=== PATIENT | female | born 1995 | race African-American/Black ===

== ENCOUNTER 2019-06-06 11:04 | Outpatient (CLI) | payer MEDICAID ==
--- NOTE | 2019-06-06 12:07 | Non Stress Test Report ---
Non Stress Test Datetime Report Generated by CPN: 06/06/2019 12:07 DEMOGRAPHIC EGA NST: 39.5 INDICATION Indication for Study (NST) Other: suspected SROM MONITORING Monitor Explained: Monitor Explained; Test Explained; Patient Verbalized Understanding Time on Monitor: 06/06/2019 11:46 Time off Monitor: 06/06/2019 12:06 NST Duration: 20 NST INTERVENTIONS NST Interventions: None Physician Notified NST: Dr. Brian BABY A: [id number] BABY A Movement : Present Contraction Frequency : x1 FHR Baseline : 155 Accelerations : 15X15 Decelerations : None Variability : Moderate 6-25bpm NST Review: Meets Criteria for Reactive NST NST Review and Verified By : TMartin,RN NST Results: Reactive NST REPORT Report Trigger: Send Report
[2019-06-06] MEDS ORDERED: RINGERS SOLUTION,LACTATED 1,000 ML IV PRN (12:35)
== END 2019-06-06 14:08 | disposition home or self-care (01) ==
LOC: LC 11:04
PROVIDERS: ATTEND Obstetrics & Gynecology
PROC: 4A1HXCZ Monitoring of Products of Conception, Cardiac Rate, External Approach (ICD-10-PCS; principal; 2019-06-06)
DX: Z36.89 Encounter for other specified antenatal screening (principal); Z3A.39 39 weeks gestation of pregnancy
CPT/HCPCS: 59025; 84112

== ENCOUNTER 2019-06-12 09:20 | Inpatient (IN) | payer MEDICAID ==
[2019-06-12] MEDS ORDERED: RINGERS SOLUTION,LACTATED 1,000 ML IV ONE (10:52)
[2019-06-12] MEDS: RINGERS SOLUTION,LACTATED 1,000 ML IV PRN ×3 (11:02→17:55)
--- NOTE | 2019-06-12 11:30 | Admission Physical ---
Datetime Report Generated by CPN: 06/12/2019 11:30 CURRENT ADMISSION Chief Complaint: Other Chief Complaint Other: NR NST Indication for Induction- Other: Decel on NST Admit Impression : Term, Intrauterine ; No Active Labor Admit Plan: Initiate Labor Induction Protocol ALLERGIES Medication Allergies: No Medication Allergies: No Known Allergies (06/12/2019) Latex: No Latex Allergies OBSTETRICAL HISTORY EDC: 06/08/2019 00:00 : 1 Para: 0 Term: 0 : 0 SAB: 0 IAB: 0 Ectopic: 0 Livin Cesareans: 0 VBACs: 0 Multiple Births: 0 Gestational Diabetes: No Rh Sensitization: No Incompetent Cervix: No ANDREW: No Infertility: No ART Treatment: No Uterine Anomaly: No IUGR: No Hx Previous C/S: No Macrosomia: No Hx Loss/Stillborn: No PIH: No Hx : No Placenta Previa/Abruption: No Depression/PP Depression: No PTL/PROM: No Post Hemorrhage: No Current Procedures: Ultrasound Obstetrical History Comments: G1- current SEE RECORDS Alcohol: No Marijuana : No Cocaine: No Other Illicit Drugs: No Cigarettes: Never Smoker. 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 Heart Disease: No Hosp/Surgery: No Autoimmune Disorder: No Anesthetic Complications: No Kidney Disease: No Abnormal Pap Smear: No Neuro/Epilepsy: No Psychiatric Disorders: No Other Medical Diseases: No Hepatitis/Liver Disease: No Significant Family History: No Varicosities/Phlebitis: No Trauma/Violence : No Thyroid Dysfunction: No Medical History Comments: thombocytopenia as a child INFECTIOUS HISTORY Gonorrhea: No Genital Herpes: No Chlamydia: No Tuberculosis: No Syphilis: No Hepatitis: No HIV/AIDS Exposure: No Rash or Viral Illness: No HPV: No PHYSICAL EXAM General: Normal HEENT: Normal Neurologic: Normal Thyroid: Normal Heart: Normal Lungs: Normal Breast: Normal Back: Normal Abdomen: Normal Genitourinary Exam: Normal Extremities: Normal DTRs: Normal Pelvic Type: Adequate Vital Signs: Reviewed VAGINAL EXAM Dilatation: 1 Effacement: 50 Station: -3 Contraction Comments: occassional MEMBRANES Membranes: Intact FETUS A EGA: 40.4 Monitoring: External US FHR- Baseline: 145 Variability: Moderate 6-25bpm Accelerations: 10X10 Decelerations: Variable FHR Category: Category II Admit Comment: at 40 wks 4 days, sent from the office for a NR-NST. Prolonged variable decel while having Rpt NST here. VE per Dr Brian, External Os 3 but Internal Os is only 1 cm./ 50/ -3, ballotable. GBS+, will need abx when in labor. Will plan to start cervical ripening and use borges bulb. Attending MD is Dr Brian PLANS FOR LABOR AND DELIVERY Labor and Delivery: None Pain Management: Natural; Medications; Epidural Feeding Preference: Breast Benefit of Breast Feed Discussed: Yes Circumcision: Yes INFORMED CONSENT Assignment: Whitney Galarza MD Signature: with User ID: Rosa : with User ID: Rosa
[2019-06-12] MEDS ORDERED: PENICILLIN G-K 5 MILLION UNIT VIAL ONE ×3 (11:32→19:17)
[2019-06-12] MEDS ORDERED: OXYTOCIN/NORMAL SALINE 20 UNIT/1,000 ML RTUINJ ONE ×3 (11:33→23:27)
[2019-06-12] MEDS ORDERED: PENICILLIN G POTASSIUM 5,000,000 UNIT in DEXTROSE 5%-WATER 100 ML IV ONE (11:35)
[2019-06-12 11:51] LABS: ABSOLUTE LYMPHOCYTES (AUTO) 1.4 10^3/uL (0.5-4.7); ABSOLUTE MONOCYTES (AUTO) 0.7 10^3/uL (0.1-1.4); BASOPHILS % (AUTO) 0.5 % (0-2); EOSINOPHILS % (AUTO) 0.7 % (0-6); HEMOGLOBIN 11.4 g/dL (12.0-15.5); LYMPHOCYTES % (AUTO) 19.6 % (13-45); MEAN CORPUSCULAR HEMOGLOBIN 29.4 pg (27.0-33.4); MEAN CORPUSCULAR HGB CONC 34.6 g/dL (32.0-36.0); MEAN CORPUSCULAR VOLUME 85 fl (80-97); MONOCYTES % (AUTO) 9.8 % (3-13); PLATELET COUNT 200 10^3/uL (150-450); RED BLOOD COUNT 3.89 10^6/uL (3.72-5.28); RED CELL DISTRIBUTION WIDTH 13.1 % (11.5-14.0); SEGMENTED NEUTROPHILS % (AUTO) 69.4 % (42-78); TOTAL CELLS COUNTED % (AUTO) 100 %; WHITE BLOOD COUNT 7.2 10^3/uL (4.0-10.5)
[2019-06-12] MEDS ORDERED: OXYTOCIN/NORMAL SALINE 20 UNIT/1,000 ML RTUINJ IV PRN ×2 (13:00→21:59)
[2019-06-12] MEDS: PENICILLIN G POTASSIUM 2,500,000 UNIT in DEXTROSE 5%-WATER 50 ML IV SCH ×2 (15:41→19:35)
[2019-06-12] MEDS ORDERED: EPHEDRINE SULFATE INJ 50 MG/1 ML AMPULE ONE (16:44)
[2019-06-12] MEDS ORDERED: FENTANYL/BUPIVACAINE/NS/PF 300 MCG/150 ML RTUINJ EPI ONE (16:44)
[2019-06-12] MEDS ORDERED: BUPIVACAINE HCL 0.25 % INJ/PF (2.5 MG/1 ML) 30 ML VIAL ONE (16:44)
[2019-06-12] MEDS ORDERED: ONDANSETRON HCL INJ/PF 4 MG/2 ML SDV IV ONE (20:27)
[2019-06-12] MEDS ORDERED: ONDANSETRON HCL INJ/PF 4 MG/2 ML SDV ONE ×2 (20:29→22:21)
[2019-06-12] MEDS ORDERED: BUPIVACAINE HCL 0.5 % INJ/PF 30 ML SDV ONE (21:33)
[2019-06-12] MEDS ORDERED: CEFAZOLIN 1 GM/D5W RTU 1 GM/50 ML RTUPB IV ONE (21:44)
[2019-06-12] MEDS ORDERED: CITRIC ACID/SODIUM CITRATE ORAL SOLN 15 ML UDCUP ONE (21:45)
[2019-06-12] MEDS ORDERED: CEFAZOLIN INJ 1 GM VIAL ONE (21:52)
[2019-06-12] MEDS ORDERED: FENTANYL CITRATE INJ/PF 100 MCG/2 ML AMPUL ONE (21:56)
[2019-06-12] MEDS ORDERED: LIDOCAINE 2% INJ-PF (20 MG/ML) 10 ML AMPUL ONE (21:56)
[2019-06-12] MEDS ORDERED: DIPH/PERTUSS(ACELL)/TETANUS VAC/PF 0.5 ML SYR (>=10YO) IM PRN (21:59)
[2019-06-12] MEDS ORDERED: OXYCODONE-ACETAMINOPHEN 5-325 MG TABLET PO PRN (21:59)
[2019-06-12] MEDS ORDERED: RINGERS SOLUTION,LACTATED 1,000 ML IV PRN (21:59)
[2019-06-12] MEDS ORDERED: PROMETHAZINE HCL INJ 25 MG/1 ML VIAL IV PRN (21:59)
[2019-06-12] MEDS ORDERED: ACETAMINOPHEN 325 MG TABLET PO PRN (21:59)
[2019-06-12] MEDS ORDERED: MEASLES,MUMPS&RUBELLA VACC/PF 0.5 ML VIAL SUBCUT PRN (21:59)
[2019-06-12] MEDS ORDERED: HYDROMORPHONE HCL INJ/PF 2 MG/ML AMPULE IV PRN (21:59)
[2019-06-12] MEDS ORDERED: CEFAZOLIN 2 GM/D5W RTU 2 GM/50 ML RTUPB IV ONE (22:01)
[2019-06-12] MEDS ORDERED: OXYTOCIN 10 UNIT/ML VIAL ONE (22:20)
[2019-06-12] MEDS ORDERED: KETOROLAC TROMETHAMINE INJ/PF 30 MG/1 ML SDV ONE (22:20)
[2019-06-12] MEDS ORDERED: ACETAMINOPHEN 1,000 MG/100 ML RTUPB IV ONE (22:21)
[2019-06-12] MEDS ORDERED: MIDAZOLAM 2 MG/2 ML INJ ONE (22:21)
[2019-06-12] MEDS ORDERED: PHENYLEPHRINE HCL INJ/PF 10 MG/1 ML SDV ONE (22:21)
--- NOTE | 2019-06-12 23:22 | Operative Report ---
Operative Report DATE OF SURGERY: 06/12/19 PREOPERATIVE DIAGNOSIS: Arrest of descent and nonreassuring heart tracing POSTOPERATIVE DIAGNOSIS: Same OPERATION: Primary via low transverse uterine incision SURGEON: SILVERIO HENRY ANESTHESIA: GA TISSUE REMOVED OR ALTERED: Placenta COMPLICATIONS: None ESTIMATED BLOOD LOSS: 250 INTRAOPERATIVE FINDINGS: Viable infant Occiput Anterior Presentation a Large Amount of caput and molding. Normal uterus tubes and ovaries PROCEDURE: Patient was taken to the OR and placed in supine position after her epidural anesthesia. She is prepared and draped in sterile fashion. Yen was placed for drainage of the bladder. Her abdomen was not quite numb so general anesthesia was induced. Low transverse incision was made and carried down the level of the fascia. The fascial incision was made with knife and extended bilaterally with curved Gallego scissors. The fascia was off the rectus muscles using sharp and blunt dissection. The rectus muscles are in the midline. The peritoneum was entered without incident. Bladder blade was placed in uterine segment was identified. A low transverse incision was made creating a bladder flap. Bladder blade was placed low transverse uterine incision was made with the knife and extended with fingertips. The baby was delivered with some fundal pressure. Mouth and nose were suctioned free. The cord is doubly clamped and cut. Baby is passed off to the project architect in [facility]. The placenta was manually extracted with trailing membranes. The uterus was externalized wrapped in a moist lap sponge. Uterine contents wiped free. Uterus was closed with a running locking layer of 0 chromic suture using the second layer to imbricate the first completing a double layer closure of the uterus. The serosa was closed with a running 2-0 chromic stitch. The pelvis was irrigated and suctioned free of fluid the uterus was replaced in the abdomen. The abdominal wall peritoneum was closed with running 2-0 chromic stitch. Fascia was closed with a running 0 Vicryl in 2 segments. Mariaelena's layer was brought together with 0 plain gut stitch and the skin was closed with running subcuticular 4-0 undyed Vicryl stitch. The wound was dressed mother and baby did well.
[2019-06-12] MEDS ORDERED: MORPHINE SULFATE 10 MG/ML INJ ONE (23:39)
[2019-06-13] MEDS ORDERED: MORPHINE SULFATE 10 MG/ML INJ ONE (00:03)
[2019-06-13] MEDS ORDERED: FENTANYL CITRATE INJ/PF 100 MCG/2 ML AMPUL ONE (00:21)
[2019-06-13 06:36] LABS: HEMATOCRIT 29.2 % (36.0-47.0); HEMOGLOBIN 10.2 g/dL (12.0-15.5); MEAN CORPUSCULAR HEMOGLOBIN 29.4 pg (27.0-33.4); MEAN CORPUSCULAR HGB CONC 34.8 g/dL (32.0-36.0); MEAN CORPUSCULAR VOLUME 84 fl (80-97); PLATELET COUNT 172 10^3/uL (150-450); RED BLOOD COUNT 3.46 10^6/uL (3.72-5.28); RED CELL DISTRIBUTION WIDTH 13.4 % (11.5-14.0); WHITE BLOOD COUNT 10.1 10^3/uL (4.0-10.5)
[2019-06-13] MEDS: IBUPROFEN 800 MG TABLET PO SCH ×4 (06:50→23:13)
[2019-06-13] MEDS: OXYCODONE-ACETAMINOPHEN 5-325 MG TABLET PO PRN ×3 (09:02→21:13)
[2019-06-13] MEDS: SIMETHICONE 80 MG TAB.CHEW PO PRN ×2 (09:03→18:36)
[2019-06-13] MEDS: PRENATAL VITAMIN W DHA CAPSULE PO SCH (09:03)
[2019-06-13] MEDS: DOCUSATE SODIUM 100 MG CAPSULE PO SCH ×2 (09:03→17:51)
--- NOTE | 2019-06-13 10:57 | PDOC PROGRESS REPORT ---
Subjective-OB Progress Note for:: 06/13/19 - POD #1, doing well, still has borges cath in place- will need to void, O negative, Rubella immune. s/p Primary Physical Exam (OB) Vital Signs: Temp Pulse Resp BP Pulse Ox 98.0 F 94 18 117/65 98 06/13/19 07:25 06/13/19 07:25 06/13/19 07:25 06/13/19 07:25 06/13/19 07:25 Intake & Output 06/12/19 06/13/19 06/14/19 06:59 06:59 06:59 Intake Total 978 Output Total 250 Balance 728 Weight 133.2 kg - General General Appearance: Appears well, Alert In distress: None - PIH/Pre-Eclampsia DTR's: 1 + Clonus: Negative Headache: Absent Epigastric Pain: No Visual Changes: No - Dressing Removed: No Incision: Dressing Closure Type: op site - Lochia Lochia Amount: Scant < 10 ml Lochia Color: Rubra/Red - Abdomen Description: Soft, Round Hernia Present: No Fundal Description: Firm, Midline Fundal Height: u/u - u/2 - Respiratory Respiratory Status: No respiratory distress Breath sounds: Clear - Cardiovascular Rhythm: Regular Heart Sounds: Normal auscultation - Abdominal Distension: No distension Tenderness: Nontender - Genitourinary Genitourinary Note: borges cath draining, clear garrison urine - Extremities Upper extremity: Normal inspection Lower extremities: Normal inspection - Neurological Cognition: Normal Orientation: AAOx4 - Psychological Associated symptoms: Normal affect, Normal mood Objective-Diagnostic Laboratory: 06/13/19 06:11 06/12/19 06/12/19 06/13/19 11:36 11:36 06:11 WBC 7.2 10.1 RBC 3.89 3.46 L Hgb 11.4 L 10.2 L Hct 33.0 L 29.2 L MCV 85 84 MCH 29.4 29.4 MCHC 34.6 34.8 RDW 13.1 13.4 Plt Count 200 172 Seg Neutrophils % 69.4 Blood Type O NEGATIVE Antibody Screen NEGATIVE Assessment and Plan(PN) - Assessment and Plan (1) Status post primary low transverse section Is this a current diagnosis for this admission?: Yes - Time Spent with Patient Time with patient: Less than 15 minutes Medications reviewed and adjusted accordingly: Yes - Disposition Anticipated Discharge: Home Within: within 48 hours
[2019-06-14] MEDS: OXYCODONE-ACETAMINOPHEN 5-325 MG TABLET PO PRN ×2 (01:19→11:20)
[2019-06-14] MEDS: IBUPROFEN 800 MG TABLET PO SCH ×2 (05:32→11:19)
[2019-06-14 07:59] VITALS: BP 133/64
[2019-06-14] MEDS: DOCUSATE SODIUM 100 MG CAPSULE PO SCH (09:30)
[2019-06-14] MEDS: PRENATAL VITAMIN W DHA CAPSULE PO SCH (09:30)
--- NOTE | 2019-06-14 10:37 | PDOC DISCHARGE SUMMARY ---
Impression - Admit/DC Date/PCP Admission Date/Primary Care Provider: 06/12/19 10:51 SILVERIO HENRY MD Discharge Date: 06/14/19 - POD #2, doing well, desires to go home today. O neg, baby is also O neg. pt c/o starting to have a cold sore on her lip. - Discharge Diagnosis (1) Status post primary low transverse section Is this a current diagnosis for this admission?: Yes (2) Group beta Strep positive Is this a current diagnosis for this admission?: Yes (3) Normal course Is this a current diagnosis for this admission?: Yes - Additional Information Resuscitation Status: Full Code Discharge Diet: As Tolerated, Regular Discharge Activity: Activity As Tolerated, No Driving, No Lifting Over 10 Pounds, Pelvic Rest Referrals: SILVERIO HENRY MD [Primary Care Provider] - Prescriptions: Ibuprofen [Motrin 800 mg Tablet] 800 mg PO Q6 #60 tablet Oxycodone HCl/Acetaminophen [Percocet 5-325 mg Tablet] 1 tab PO Q4HP PRN #30 tablet PRN Reason: Pain Scale Of 4 Valacyclovir HCl [Valacyclovir] 1,000 mg PO ONCE #2 tablet Home Medications: Vit,Calc76/Iron/Folic [Prenatabs Rx Tablet] 1 tab PO DAILY 06/06/19 Ibuprofen [Motrin 800 mg Tablet] 800 mg PO Q6 #60 tablet 06/14/19 Oxycodone HCl/Acetaminophen [Percocet 5-325 mg Tablet] 1 tab PO Q4HP PRN #30 tablet 06/14/19 Valacyclovir HCl [Valacyclovir] 1,000 mg PO ONCE #2 tablet 06/14/19 HPI Reason(s) for Admission: Induction of Labor Intrapartum Procedure(s): : Low Cervical, Transverse Hospital Course Hospital Course: normal Results Laboratory Results: WBC 10.1 10^3/uL (4.0-10.5) 06/13/19 06:11 RBC 3.46 10^6/uL (3.72-5.28) L 06/13/19 06:11 Hgb 10.2 g/dL (12.0-15.5) L 06/13/19 06:11 Hct 29.2 % (36.0-47.0) L 06/13/19 06:11 MCV 84 fl (80-97) 06/13/19 06:11 MCH 29.4 pg (27.0-33.4) 06/13/19 06:11 MCHC 34.8 g/dL (32.0-36.0) 06/13/19 06:11 RDW 13.4 % (11.5-14.0) 06/13/19 06:11 Plt Count 172 10^3/uL (150-450) 06/13/19 06:11 Lymph % (Auto) 19.6 % (13-45) 06/12/19 11:36 Cloud % (Auto) 9.8 % (3-13) 06/12/19 11:36 Eos % (Auto) 0.7 % (0-6) 06/12/19 11:36 Baso % (Auto) 0.5 % (0-2) 06/12/19 11:36 Absolute Neuts (auto) 5.0 10^3/uL (1.7-8.2) 06/12/19 11:36 Absolute Lymphs (auto) 1.4 10^3/uL (0.5-4.7) 06/12/19 11:36 Absolute Monos (auto) 0.7 10^3/uL (0.1-1.4) 06/12/19 11:36 Absolute Eos (auto) 0.0 10^3/uL (0.0-0.6) 06/12/19 11:36 Absolute Basos (auto) 0.0 10^3/uL (0.0-0.2) 06/12/19 11:36 Seg Neutrophils % 69.4 % (42-78) 06/12/19 11:36 Blood Type O NEGATIVE 06/12/19 11:36 Antibody Screen NEGATIVE 06/12/19 11:36 Plan Plan of Treatment: d/c to home, f/up with [facility] in 1 week for incision check. Rx for Fever Blister outbreak, pt counseled not to kiss her baby
--- NOTE | 2019-06-19 07:50 | Delivery Summary ---
Del Sum A-C Datetime Report Generated by CPN: 06/19/2019 07:50 DELIVERY PERSONNEL DELIVERY PERSONNEL: [id number] Delivery Doctor:: Whitney Galarza MD Anesthesiologist:: Lyubov Snell MD PLASTER MECHANIC:: Murtaza Normile, PLASTER MECHANIC PLASTER MECHANIC:: Murtaza Normile, PLASTER MECHANIC Straight Line Edger:: Tamika Mcclendon RN Neonatal Nurse Practitioner:: CHIQUITA Cook Nursery Nurse:: Cathi Kidd RN Photo Specialist/REDEVELOPMENT MANAGER: [facility] Photo Specialist/REDEVELOPMENT MANAGER: [facility] Additional Personnel: : Monica Clarke, RN MATERNAL INFORMATION Delivery Anesthesia: Epidural; General Medications After Delivery: Pitocin Bolus-Please Comment Meds After Delivery Comment: Pitocin 20 units/1000 mL NS bolus in OR by PLASTER MECHANIC Delivery QBL: 590 Provider Comments: Documented on wrong pt- NCR No for this patient LABOR SUMMARY EDC: 06/08/2019 00:00 No. Babies in Womb: 1 Attempted: No Labor Anesthesia: Epidural LABOR INFORMATION Reason for Induction: Other Reason for Induction- Other: NRFHT Onset of Labor: 06/12/2019 19:35 Oxytocin: Induction (Annotations: Data stored by N on behalf of user) Group B Beta Strep: positive Antibiotics # of Doses: 3 Antibiotics Time of Last Dose: 1934 Name of Antibiotic Given: PENICILLIN Steroids Given: None Reason Steroids Not Administered: Not Applicable MEMBRANES Membranes Rupture Method: Artificial Rupture of Membranes: 06/12/2019 15:22 Length of Rupture (hr): 7.35 Amniotic Fluid Color: Clear Amniotic Fluid Amount: Small Amniotic Fluid Odor: Normal STAGES OF LABOR Stage 3 hr: 0 Stage 3 min: 1 Total Time in Labor hr: 3 Total Time in Labor min: 9 VAGINAL DELIVERY Episiotomy: None Laceration Extension #1: N/A Other Laceration: DOCUMENTED ON WRONG PT. NO LACERATION REPAIR Laceration Repair: Not Applicable Laceration Repair Note: figure of eight stitch placed in Rt Sidewall to make hemostatic. 1% lidocaine injection used to numb area Sponge Count Correct: N/A Sharps Count Correct: N/A CSECTION DELIVERY Primary Indication: Nonreassuring Status Secondary Indication: Failure of Descent CSection Urgency: Non-Scheduled CSection Incidence: Primary Labor: Labor Elective: Nonelective CSection Incision: Lower Uterine Transverse BABY A INFORMATION Delivery Date/Time: 06/12/2019 22:43 Method of Delivery: Nurse Controlled Delivery: No Born in Route : No : N/A Forceps: N/A Vacuum Extraction: N/A Shoulder Dystocia : No PRESENTATION/POSITION BABY A Presentation: Cephalic Presentation: Cephalic Cephalic Presentation: Vertex Breech Presentation: N/A PLACENTA INFORMATION BABY A Placenta Delivery Time : 06/12/2019 22:44 Placenta Method of Delivery: Manual Removal Placenta Status: Delivered SCORES BABY A Heart Rate 1 min: >100 bpm Resp Effort 1 min: Good Cry Reflex Irritability 1 min: Cough or Sneeze or Pulls Away Muscle Tone 1 min: Active Motion Color 1 min: Blue/Pale SCORE 1 MIN: 8 Heart Rate 5 min: >100 bpm Resp Effort 5 min: Good Cry Reflex Irritability 5 min: Cough or Sneeze or Pulls Away Muscle Tone 5 min: Active Motion Color 5 min: Body Redan, Extremities Blue SCORE 5 MIN: 9 INFORMATION BABY A Gestational Age at Delivery: 40.4 Gestational Status: Full Term- 39- 40.6 Weeks Outcome : Liveborn Condition : Stable Sex: Male IDENTIFICATION BABY A Infant Verification Date/Time: 06/12/2019 22:59 ID Band Number: [id number] Mother's Name Verified: Yes RN Verifying Infant: Eamon, ASaloni RN Additional Verifying Personnel: eddie Marie RN WEIGHT/LENGTH BABY A Infant Birthweight (gm): 3525 Infant Weight (lb): 7 Infant Weight (oz): 12 Length (in): 20.75 Infant Length (cm): 52.71 CORD INFORMATION BABY A No. Cord Vessels: 3 Nuchal Cord : N/A Cord Blood Taken: Yes-For Eval (Mom's Blood Type - or O+) Infant Suction: None ASSESSMENT BABY A Infant Complications: Multiple Variable Decels Physical Findings at Delivery: Caput Succedaneum Physical Findings- Other: See full nursery occupational hygienist Infant Respirations: Appears Normal Welfare Eligibility Worker/ALS Called : No Infant Care By: Pili Kidd RN and Cassie Huizar STOKER INSTALLER Transferred To: Nursery BABY B INFORMATION : N/A SIGNATURES Assignment: Whitney Galarza MD Signature: with User ID: Rosa Signature: with User ID: Rosa : with User ID: Rosa : with User ID: Rosa
== END 2019-06-14 14:20 | disposition home or self-care (01) | DRG 788 ==
LOC: LC 09:20 → LR 10:51 → 2N 06-13 01:26
PROVIDERS: ADMIT Obstetrics & Gynecology; ATTEND Obstetrics & Gynecology
PROC: 10D00Z1 Extraction of Products of Conception, Low, Open Approach (ICD-10-PCS; principal; 2019-06-12)
PROC: 10907ZC Drainage of Amniotic Fluid, Therapeutic from Products of Conception, Via Natural or Artificial Opening (ICD-10-PCS; 2019-06-12)
DX: O99.824 Streptococcus B carrier state complicating childbirth (principal); O76 Abnormality in fetal heart rate and rhythm complicating labor and delivery; O32.4XX0 Maternal care for high head at term, not applicable or unspecified; Z23 Encounter for immunization; Z28.21 Immunization not carried out because of patient refusal; Z3A.40 40 weeks gestation of pregnancy; Z37.0 Single live birth
CPT/HCPCS: 1961; 36415; 85025; 85027; 86592; 86850; 86900; 86901; 94760; 94799; J0131; J0690; J1170; J1885; J2250; J2270; J2370; J2405; J2540; J2590; J3010; J3490; J7060; J7120